=== PATIENT | female | born 2000 | race African-American/Black ===

== ENCOUNTER 2018-04-11 14:47 | Emergency (ER) | payer OTHER | END 2018-04-11 16:53 | disposition home or self-care (01) | LOC: ER 16:53 | DX: S62.514A Nondisplaced fracture of proximal phalanx of right thumb, initial encounter for closed fracture (principal); S43.402A Unspecified sprain of left shoulder joint, initial encounter; S63.501A Unspecified sprain of right wrist, initial encounter; W18.39XA Other fall on same level, initial encounter; Y93.89 Activity, other specified; Y99.8 Other external cause status; Y92.89 Other specified places as the place of occurrence of the external cause | CPT/HCPCS: 29125; 73030; 73110; 73130; 99284-25 ==

== ENCOUNTER 2021-07-29 00:21 | Emergency (ER) | payer SELFPAY ==
[~2021-07-29] VITALS: Ht 160 cm; Wt 56.0 kg
[~2021-07-29 00:21] MED LIST: NAPR-514 PO; ORPH100T PO
--- NOTE | 2021-07-29 00:39 | PHYS DOC ---
Past Medical History Past Medical History: No Pertinent History Past Surgical History: No Surgical History Smoking Status: Never Smoker Alcohol Use: Rarely Drug Use: Marijuana General Adult EDM: Chief Complaint: ALTERED MENTAL STATUS HPI: HPI: Patient is a 21-year-old female presenting via EMS for mental health issues. [place] Patient reportedly has past medical history of depression without any prior suicidal attempts or homicidal issues. She does not take any medication. She has known history of substance abuse but admits she has not taken any meth. Patient reports to EMS on arrival that she feels fearful of herself and that other people see her differently. She actively denies any suicidal or homicidal ideation. States she takes no medications on a daily basis. She has been at baseline health without any major life changes/stressors, trauma, ingestion, sick contact or recent traveling Review of Systems: Review of Systems: Fourteen body systems of review of systems have been reviewed. See HPI for pertinent positives and negative responses, other freeman all other systems are negative, non-pertinent or non-contributory Heart Score: C/O Chest Pain: No Risk Factors: Risk Factors: DM, Current or recent (<one month) smoker, HTN, HLP, family history of CAD, obesity. Risk Scores: Score 0 - 3: 2.5% MACE over next 6 weeks - Discharge Home Score 4 - 6: 20.3% MACE over next 6 weeks - Admit for Clinical Observation Score 7 - 10: 72.7% MACE over next 6 weeks - Early Invasive Strategies Allergies: Allergies: Allergies Coded Allergies Type Severity Reaction Last Updated Verified No Known Drug Allergies 06/24/14 No Physical Exam: PE: Constitutional: Age-appropriate, tearful and hysterical on evaluation but nontoxic in appearance HENT: Normocephalic, atraumatic, bilateral external ears normal, oropharynx moist, no oral exudates, nose normal. Eyes: PERRLA, EOMI, conjunctiva normal, no discharge. Neck: Normal range of motion, no tenderness, supple, no stridor. No meningeal signs or nuchal rigidity Cardiovascular: Heart rate regular, sinus rhythm, no murmurs rubs or gallops Lungs & Thorax: Bilateral breath sounds clear to auscultation Abdomen: Bowel sounds normal, soft, no tenderness, no masses, no pulsatile masses. Nonsurgical abdomen, no peritoneal signs Skin: Warm, dry, no erythema, no rash. Back: No tenderness, no CVA tenderness. Extremities: No tenderness, no cyanosis, no clubbing, ROM intact, no edema. Neurologic: Alert and oriented X 3, cranial nerves II through XII intact, normal motor & sensory function, no focal deficits noted. Psychologic: Tearful affect, anxious mood, paranoid Current Patient Data: Labs: Laboratory Tests Test 07/29/21 00:25 07/29/21 00:27 07/29/21 00:55 Urine Collection Type Unknown Urine Color Yellow Urine Clarity Clear Urine pH 6.0 Urine Specific [place] >=1.030 Urine Protein Negative mg/dL Urine Glucose (UA) Negative mg/dL Urine Ketones (Stick) >=80 mg/dL Urine Blood Negative Urine Nitrite Negative Urine Bilirubin Negative Urine Urobilinogen Dipstick 1.0 mg/dL Urine Leukocyte Esterase Moderate Urine RBC 1-2 /HPF Urine WBC 20-40 /HPF Urine Squamous Epithelial Cells Many /LPF Urine Bacteria Few /HPF Urine Mucus Marked /LPF Urine Opiates Screen Neg Urine Methadone Screen Neg Urine Barbiturates Neg Urine Phencyclidine Screen Neg Urine Amphetamine/Methamphetamine Pos Urine Benzodiazepines Screen Neg Urine Cocaine Screen Neg Urine Cannabinoids Screen Pos Urine Ethyl Alcohol Neg Bedside Urine HCG, Qualitative Hcg negative White Blood Count 6.1 x10^3/uL Red Blood Count 3.89 x10^6/uL Hemoglobin 12.3 g/dL Hematocrit 36.0 % Mean Corpuscular Volume 93 fL Mean Corpuscular Hemoglobin 32 pg Mean Corpuscular Hemoglobin Concent 34 g/dL Red Cell Distribution Width 14.1 % Platelet Count 306 x10^3/uL Neutrophils (%) (Auto) 45 % Lymphocytes (%) (Auto) 40 % Monocytes (%) (Auto) 12 % Eosinophils (%) (Auto) 2 % Basophils (%) (Auto) 1 % Neutrophils # (Auto) 2.8 x10^3/uL Lymphocytes # (Auto) 2.5 x10^3/uL Monocytes # (Auto) 0.7 x10^3/uL Eosinophils # (Auto) 0.1 x10^3/uL Basophils # (Auto) 0.1 x10^3/uL Sodium Level 137 mmol/L Potassium Level 3.7 mmol/L Chloride Level 101 mmol/L Carbon Dioxide Level 29 mmol/L Anion Gap 7 Blood Urea Nitrogen 20 mg/dL Creatinine 1.1 mg/dL Estimated GFR (Cockcroft-Gault) 74.5 BUN/Creatinine Ratio 18 Glucose Level 91 mg/dL Calcium Level 8.8 mg/dL Total Bilirubin 1.2 mg/dL Aspartate Amino Transf (AST/SGOT) 14 U/L Alanine Aminotransferase (ALT/SGPT) 19 U/L Alkaline Phosphatase 50 U/L Troponin I High Sensitivity 4 ng/L Total Protein 7.6 g/dL Albumin 4.0 g/dL Albumin/Globulin Ratio 1.1 Ethyl Alcohol Level < 10 mg/dL Vital Signs: Vital Signs Date Time Temp Pulse Resp B/P (MAP) Pulse Ox O2 Delivery O2 Flow Rate FiO2 07/29/21 00:45 98.4 72 18 143/75 (97) 100 98.4 Vital Signs Date Time Temp Pulse Resp B/P (MAP) Pulse Ox O2 Delivery O2 Flow Rate FiO2 07/29/21 01:15 75 18 114/76 (89) 100 07/29/21 00:45 98.4 98.4 EKG: EKG: [] Radiology/Procedures: Radiology/Procedures: [] Course & Med Decision Making: Course & Med Decision Making ABCs unremarkable HPI physical exam and comprehensive ER work-up nonconcerning for any emergent or surgical issues Patient positive for methamphetamine and cannabis. Patient initially tearful with tangential thought process and altered mentation per baseline With time, patient calm down. She later cites dysuria and entirety of ER findings disclosed with patient. Given symptoms and UA findings, patient likely suffering from UTI and decision was made to start Macrobid which he tolerated in ER Patient continues to deny any SI/HI. She is tearful and tangential at times stating she cannot feel her body and does not know who she is. She is requesting behavioral health evaluation Patient evaluated by qualified mental health professional who reviewed any appropriate supporting documentation and previous available medical records and feels patient does not meet criteria for admission to a mental health facility. I agree with this evaluation. Resources given Safety precautions discussed at length. Need for close PCP follow-up advised. Strict return precautions discussed and understood by patient, all questions and concerns addressed prior to ER departure [place] Disclaimer: Dragon Disclaimer: This electronic medical record was generated, in whole or in part, using a voice recognition dictation system. Departure Departure Impression: Primary Impression: UTI (lower urinary tract infection) Additional Impression: Acute drug intoxication with delirium Disposition: HOME / SELF CARE / HOMELESS Condition: IMPROVED Referrals: ARI ORTEGA PA-C (PCP) Patient Instructions: Urinary Tract Infection Additional Instructions: You were seen for a urinary tract infection. Please continue to take the antibiotics as prescribed. You should also avoid ongoing illicit drug abuse as it has extensive short and long-term health implications. You should return to the ED if you develop worsening pain, fever, flank pain, or any other new or concerning symptoms. Follow up with primary care for further management if ongoing symptoms. Scripts Nitrofurantoin Monohyd/M-Cryst (MACROBID 100 MG CAPSULE) 100 Mg Capsule 1 CAP PO BID for 5 Days, #9 CAP 0 Refills Prov: ABILIO MCKEON DO 07/29/21 ABILIO MCKEON DO Jul 29, 2021 00:39
[2021-07-29 00:41] LABS: BILIRUBIN,URINE NEGATIVE (NEG); CLARITY,URINE CLEAR; COLOR,URINE YELLOW; NITRITE,URINE NEGATIVE (NEG); PROTEIN,URINE NEGATIVE (NEG-TRACE)
[2021-07-29 00:48] LABS: BACTERIA,URINE FEW /HPF (0-FEW); BARBITURATES NEG (NEG); BENZODIAZEPINES NEG (NEG); CANNABINOIDS POS (NEG); COCAINE NEG (NEG); METHADONE NEG (NEG); OPIATES NEG (NEG); PHENCYCLIDINE NEG (NEG); WBC,URINE 20-40 /HPF (0-4)
[2021-07-29 00:49] LABS: AMPHETAMINE/METHAMPHETAMINE POS (NEG)
[2021-07-29 01:02] LABS: BASO # 0.1 x10^3/uL (0.0-0.2); BASO % 1 % (0-3); EOS # 0.1 x10^3/uL (0.0-0.7); EOS % 2 % (0-3); HEMOGLOBIN 12.3 g/dL (12.0-15.5); LYMPH # 2.5 x10^3/uL (1.0-4.8); LYMPH % 40 % (24-48); MEAN CORPUSCULAR HEMOGLOBIN 32 pg (25-35); MEAN CORPUSCULAR HGB CONC 34 g/dL (31-37); MEAN CORPUSCULAR VOLUME 93 fL (79-100); MONO # 0.7 x10^3/uL (0.0-1.1); MONO % 12 % (0-9); NEUT # 2.8 x10^3/uL (1.8-7.7); NEUT % 45 % (31-73); PLATELET COUNT 306 x10^3/uL (140-400); RED BLOOD COUNT 3.89 x10^6/uL (3.50-5.40); RED CELL DISTRIBUTION WIDTH 14.1 % (11.5-14.5); WHITE BLOOD COUNT 6.1 x10^3/uL (4.0-11.0)
[2021-07-29 01:15] LABS: CALCIUM 8.8 mg/dL (8.5-10.1); CREATININE 1.1 mg/dL (0.6-1.0); GFR 74.5; POTASSIUM 3.7 mmol/L (3.5-5.1)
[2021-07-29 01:20] LABS: ALBUMIN/GLOBULIN RATIO 1.1 (1.0-1.7); TOTAL BILIRUBIN 1.2 mg/dL (0.2-1.0); TOTAL PROTEIN 7.6 g/dL (6.4-8.2)
[2021-07-29 02:45] VITALS: BP 126/78
[2021-07-29] MEDS ORDERED: NITR100C62 PO (02:47)
[2021-07-29] MEDS ORDERED: NITROFURANTOIN MONOHYD/M-CRYST 100 MG CAPSULE. PO ONE (03:00)
--- NOTE | 2021-08-01 19:32 | VNOTE ---
CALL BACK NOTE CALL BACK Microbiology 07/29/21 Urine Culture - Final, Complete 07/29/21 Antimicrobic Susceptibility - Final, Complete Patient culture sensitivity came back with intermediate susceptibility to the prescribed antibiotic, Macrobid. There is no pharmacy information stored for the patient. Patient was unable to be contacted, due to issues with her phone number. Patient's mother was contacted, who will instruct the patient to call the department. Per new protocol, since patient was unable to be contacted immediately, paper prescription will be written and included with the letter that goes directly to the patient. Patient called the emergency department back, and requested that her prescrip tions be sent to [facility] in [place], [place]. Augmentin 500 mg p.o. twice daily x5 days prescribed. MARSHA KURTZ Aug 01, 2021 19:32 INGRIS WORLEY MD Aug 02, 2021 02:11
== END 2021-07-29 03:15 | disposition home or self-care (01) ==
LOC: ER 00:21
DX: F12.121 Cannabis abuse with intoxication delirium (principal); N39.0 Urinary tract infection, site not specified
CPT/HCPCS: 36415; 80053; 80307; 81001; 81025; 84484; 85025; 87077; 87086; 87186; 99285; G0480

== ENCOUNTER 2021-11-21 19:59 | Emergency (ER) | payer OTHER ==
[~2021-11-21] VITALS: Ht 162.6 cm; Wt 51.4 kg
[~2021-11-21 19:59] MED LIST changes: +NITR100C62 PO
--- NOTE | 2021-11-21 20:07 | ED.ADGEN ---
Past Medical History Past Medical History: No Pertinent History Past Surgical History: No Surgical History Smoking Status: Never Smoker Alcohol Use: None Drug Use: Marijuana General Adult EDM: Chief Complaint: PSYCH EVALUATION HPI: HPI: Patient is a 21 year old female coming in via EMS from a hotel for psych evaluation. Patient patient is depressed is hoping to get some resources. Patient has lived in the [facility] for the past 6 months and recent became homeless. Patient states that when she was in [place] she had been released from a rehab facility. Patient denies any suicidal homicidal ideations. Patient states tobacco and had a sip of beer but then threw it away prior to arrival. Patient not currently taking medications Review of Systems: Review of Systems: All other systems within normal limits except for as noted in the HPI Allergies: Allergies: Allergies Coded Allergies Type Severity Reaction Last Updated Verified No Known Drug Allergies 11/21/21 No Physical Exam: PE: Constitutional: Well developed, well nourished, no acute distress, non-toxic appearance. [] HENT: Normocephalic, atraumatic, bilateral external ears normal, nose normal. [] Eyes: PERRLA, conjunctiva normal, no discharge. [] Neck: No rigidity, supple, no stridor. [] Cardiovascular: Regular rate and rhythm, brisk cap refill [] Lungs & Thorax: Non labored symmetric respirations, no tachypnea or respiratory distress [] Abdomen: Soft, nondistended. Skin: Warm, dry, no erythema, no rash. [] Back: Unremarkable Extremities: No deformities, range of motion grossly intact, no lower extremity edema [] Neurologic: Alert and oriented X 3, no focal deficits noted. [] Psychologic: Affect normal, judgement normal, mood normal. [] Current Patient Data: Labs: Laboratory Tests Test 11/21/21 20:43 11/21/21 20:47 11/21/21 20:57 11/21/21 21:00 White Blood Count 6.8 x10^3/uL (4.0-11.0) Red Blood Count 3.92 x10^6/uL (3.50-5.40) Hemoglobin 12.0 g/dL (12.0-15.5) Hematocrit 36.6 % (36.0-47.0) Mean Corpuscular Volume 93 fL (79-100) Mean Corpuscular Hemoglobin 31 pg (25-35) Mean Corpuscular Hemoglobin Concent 33 g/dL (31-37) Red Cell Distribution Width 13.6 % (11.5-14.5) Platelet Count 293 x10^3/uL (140-400) Neutrophils (%) (Auto) 49 % (31-73) Lymphocytes (%) (Auto) 39 % (24-48) Monocytes (%) (Auto) 10 % (0-9) H Eosinophils (%) (Auto) 1 % (0-3) Basophils (%) (Auto) 1 % (0-3) Neutrophils # (Auto) 3.3 x10^3/uL (1.8-7.7) Lymphocytes # (Auto) 2.7 x10^3/uL (1.0-4.8) Monocytes # (Auto) 0.7 x10^3/uL (0.0-1.1) Eosinophils # (Auto) 0.0 x10^3/uL (0.0-0.7) Basophils # (Auto) 0.1 x10^3/uL (0.0-0.2) Sodium Level 141 mmol/L (136-145) Potassium Level 3.5 mmol/L (3.5-5.1) Chloride Level 103 mmol/L (98-107) Carbon Dioxide Level 25 mmol/L (21-32) Anion Gap 13 (6-14) Blood Urea Nitrogen 13 mg/dL (7-20) Creatinine 1.1 mg/dL (0.6-1.0) H Estimated GFR (Cockcroft-Gault) 74.5 BUN/Creatinine Ratio 12 (6-20) Glucose Level 90 mg/dL (70-99) Calcium Level 9.2 mg/dL (8.5-10.1) Magnesium Level 1.8 mg/dL (1.8-2.4) Total Bilirubin 0.8 mg/dL (0.2-1.0) Aspartate Amino Transferase (AST) 15 U/L (15-37) Alanine Aminotransferase (ALT) 14 U/L (14-59) Alkaline Phosphatase 50 U/L (46-116) Total Protein 7.7 g/dL (6.4-8.2) Albumin 4.2 g/dL (3.4-5.0) Albumin/Globulin Ratio 1.2 (1.0-1.7) Thyroid Stimulating Hormone (TSH) 0.672 uIU/mL (0.358-3.74) Salicylates Level 1.5 mg/dL (2.8-20.0) L Salicylate Last Dose Date Unknown Salicylate Last Dose Time Unknown Acetaminophen Level < 2 mcg/ml (10-30) L Acetaminophen Last Dose Date Unknown Acetaminophen Last Dose Time Unknown Ethyl Alcohol Level < 10 mg/dL (0-10) Influenza Type A Antigen Negative (NEGATIVE) Influenza Type B Antigen Negative (NEGATIVE) SARS-CoV-2 Antigen (Rapid) Negative (NEGATIVE) Urine Collection Type Unknown Urine Color Yellow Urine Clarity Cloudy Urine pH 6.5 (<5.0-8.0) Urine Specific [place] 1.025 (1.000-1.030) Urine Protein Negative mg/dL (NEG-TRACE) Urine Glucose (UA) Negative mg/dL (NEG) Urine Ketones (Stick) 80 mg/dL (NEG) Urine Blood Negative (NEG) Urine Nitrite Positive (NEG) Urine Bilirubin Negative (NEG) Urine Urobilinogen Dipstick 0.2 mg/dL (0.2 mg/dL) Urine Leukocyte Esterase Trace (NEG) Urine RBC 0 /HPF (0-2) Urine WBC 5-10 /HPF (0-4) Urine Squamous Epithelial Cells Few /LPF Urine Bacteria Many /HPF (0-FEW) Urine Mucus Slight /LPF Urine Opiates Screen Neg (NEG) Urine Methadone Screen Neg (NEG) Urine Barbiturates Neg (NEG) Urine Phencyclidine Screen Neg (NEG) Urine Amphetamine/Methamphetamine Neg (NEG) Urine Benzodiazepines Screen Neg (NEG) Urine Cocaine Screen Neg (NEG) Urine Cannabinoids Screen Pos (NEG) Urine Ethyl Alcohol Neg (NEG) POC Urine HCG, Qualitative Hcg negative (Negative) Laboratory Tests 11/21/21 20:43 Laboratory Tests 11/21/21 20:43 Vital Signs: Vital Signs Date Time Temp Pulse Resp B/P (MAP) Pulse Ox O2 Delivery O2 Flow Rate FiO2 11/21/21 21:49 101 117/72 (87) 100 Room Air 11/21/21 20:02 98.7 16 98.7 EKG: EKG: Sinus rhythm, heart rate 90 beats minute, normal axis, isolation depression, no ectopy, normal intervals [] Heart Score: C/O Chest Pain: No Risk Factors: Risk Factors: DM, Current or recent (<one month) smoker, HTN, HLP, family history of CAD, obesity. Risk Scores: Score 0 - 3: 2.5% MACE over next 6 weeks - Discharge Home Score 4 - 6: 20.3% MACE over next 6 weeks - Admit for Clinical Observation Score 7 - 10: 72.7% MACE over next 6 weeks - Early Invasive Strategies Radiology/Procedures: Radiology/Procedures: [] Course & Med Decision Making: Course & Med Decision Making Patient is fully cooperative with a flat affect. Patient later became agitated and was responding to internal stimuli, and including referring to herself in the third person. Patient then called back down. PAT evaluation revealed pat margret had some thoughts that were consistent with being suicidal however she would deny being suicidal when directly asked. We were trying to arrange for inpatient admission and patient initially amenable to idea, then changed her mind. Patient again became consumed by internal stimuli. Patient eloped by running out the side doors of the ED while waiting for her mother to arrive to possibly take her home with her. Mother notified as soon as patient will. Guevara Disclaimer: Guevara Disclaimer: This electronic medical record was generated, in whole or in part, using a voice recognition dictation system. Departure Departure Impression: Primary Impression: Hallucinations Disposition: 07 LEFT AWOL/ELOPED Condition: GUARDED Referrals: NO PCP (PCP) KRYSTYNA STRICKLAND MD Nov 21, 2021 20:06
[2021-11-21 20:53] LABS: BASO # 0.1 x10^3/uL (0.0-0.2); BASO % 1 % (0-3); EOS % 1 % (0-3); HEMATOCRIT 36.6 % (36.0-47.0); LYMPH # 2.7 x10^3/uL (1.0-4.8); LYMPH % 39 % (24-48); MEAN CORPUSCULAR HEMOGLOBIN 31 pg (25-35); MEAN CORPUSCULAR HGB CONC 33 g/dL (31-37); MEAN CORPUSCULAR VOLUME 93 fL (79-100); MONO # 0.7 x10^3/uL (0.0-1.1); MONO % 10 % (0-9); NEUT # 3.3 x10^3/uL (1.8-7.7); NEUT % 49 % (31-73); PLATELET COUNT 293 x10^3/uL (140-400); RED BLOOD COUNT 3.92 x10^6/uL (3.50-5.40); RED CELL DISTRIBUTION WIDTH 13.6 % (11.5-14.5); WHITE BLOOD COUNT 6.8 x10^3/uL (4.0-11.0)
[2021-11-21 21:08] LABS: CALCIUM 9.2 mg/dL (8.5-10.1); CREATININE 1.1 mg/dL (0.6-1.0); GFR 74.5; POTASSIUM 3.5 mmol/L (3.5-5.1)
[2021-11-21 21:11] LABS: ACETAMIN < 2 mcg/ml (10-30); ETHANOL < 10 mg/dL (0-10); SALIC 1.5 mg/dL (2.8-20.0)
[2021-11-21 21:12] LABS: ALBUMIN 4.2 g/dL (3.4-5.0); ALBUMIN/GLOBULIN RATIO 1.2 (1.0-1.7); MAGNESIUM 1.8 mg/dL (1.8-2.4); TOTAL BILIRUBIN 0.8 mg/dL (0.2-1.0); TOTAL PROTEIN 7.7 g/dL (6.4-8.2)
[2021-11-21 21:14] LABS: INFLUENZA A PATIENT NEGATIVE (NEGATIVE); INFLUENZA B PATIENT NEGATIVE (NEGATIVE)
[2021-11-21 21:21] LABS: BILIRUBIN,URINE NEGATIVE (NEG); CLARITY,URINE CLOUDY; COLOR,URINE YELLOW
[2021-11-21 21:22] LABS: BARBITURATES NEG (NEG); BENZODIAZEPINES NEG (NEG); CANNABINOIDS POS (NEG); COCAINE NEG (NEG); METHADONE NEG (NEG); NITRITE,URINE POSITIVE (NEG); OPIATES NEG (NEG); PH,URINE 6.5 (<5.0-8.0); PHENCYCLIDINE NEG (NEG); PROTEIN,URINE NEGATIVE (NEG-TRACE); UROBILINOGEN,URINE 0.2 mg/dL (0.2 mg/dL)
[2021-11-21 21:23] LABS: AMPHETAMINE/METHAMPHETAMINE NEG (NEG); BACTERIA,URINE MANY /HPF (0-FEW); RBC,URINE 0 /HPF (0-2)
[2021-11-22 00:54] VITALS: BP 114/70
--- NOTE | 2021-11-23 00:56 | EKG ---
[facility] [address] [place] [address] Test Date: 2021-11-21 Test Time: 20:40:46 Pat Name: HENRRY MATTHEWS Department: Room: Gender: F Oil Treater: : 2000 Requested By: KRYSTYNA STRICKLAND Order Number: [id number] Reading MD: Maximiliano Marinelli MD Measurements Intervals [place] Rate: 90 P: 61 [place]: 134 QRS: 86 QRSD: 78 T: 38 QT: 314 QTc: 388 Interpretive Statements SINUS RHYTHM Electronically Signed On 11-24-2021 10:19:24 PROPOSAL LEAD WRITER by Maximiliano Marinelli MD
== END 2021-11-22 01:46 | disposition left against medical advice (07) ==
LOC: ER 19:59
DX: R44.3 Hallucinations, unspecified (principal); F32.9 Major depressive disorder, single episode, unspecified; Z59.00 Homelessness unspecified; Z20.822 Contact with and (suspected) exposure to COVID-19
CPT/HCPCS: 80053; 80307; 80329; 81001; 81025; 83735; 84443; 85025; 87077; 87086; 87186; 87428; 93005; 99285; C9803; G0480; U0003